=== PATIENT | female | born 1940 | race Caucasian/White ===

== ENCOUNTER → 2016-06-18 | Outpatient (CLI) | payer OTHER, MEDICARE ==
[~2016-06-18] MED LIST: ALBUTEROL2.5 MG/0.5; ATIVAN1 MG PO; BENICAR20 MG PO; BISA-LAX5 MG PO; CEFAZOLIN2 GM/20 ML IV; COLACE100 MG PO; COUMADIN 2.5MG2.5 M1 PO; COUMADIN 5 MG TA5 M1 PO; ESTRACE1 MG PO; FENOGLIDE120 MG PO; GENTLE LAXATIVE5 M1 PO; KETOROLAC IJ; LEVOTHYROXIN0.025 MG PO; MORPHINE 110 MG/1 ML IM; ONDANSETRON HCL4 M2 IV; PERCOCET PO; PHENERGAN25 MG/1 M1 IM; TOPROL XL100 MG PO; TRAMADOL 50 MG50 MG PO; TRICOR145 MG
== END ==
LOC: RAD 10:57
DX: Z12.31 Encounter for screening mammogram for malignant neoplasm of breast (principal)

== ENCOUNTER → 2017-06-21 | Outpatient (CLI) | payer OTHER, MEDICARE | LOC: RAD 01:15 | DX: Z12.31 Encounter for screening mammogram for malignant neoplasm of breast (principal) ==

== ENCOUNTER 2018-05-02 04:02 | Inpatient (IN) | payer OTHER, MEDICARE ==
[~2018-05-02] VITALS: Ht 165.1 cm; Wt 99.8 kg
--- NOTE | ~2018-05-02 | EKG ---
[address] [place] [address] ELECTROCARDIOGRAM REPORT Name: IRAJ OLIVIA Room #: 461-P ADM IN M.R.#: [id number] Admission: 05/02/18 Attend Phys: Martir Olsen MD Discharge: Date of : 36 Report #: [id number] THIS REPORT FOR: //name// [facility] ED Test Date: 2018-05-02 Test Time: 04:08:44 Pat Name: IRAJ OLIVIA Department: Room: 46 Gender: F Structural Engineering Project Manager: Carlos : 1940 Requested By: Ping Flowers Order Number: [id number] MD: Luke Garcia Measurements Intervals Mcgrath Rate: 62 P: 45 ID: [id number] QRS: 63 QRSD: 104 T: 23 QT: 408 QTc: 415 Interpretive Statements Sinus rhythm Atrial premature complexes in couplets Low voltage, precordial leads Compared to ECG 12/16/2013 14:20:35 Atrial premature complex(es) now present Sinus tachycardia no longer present Poor R-wave progression no longer present Electronically Signed On 05-02-2018 8:07:42 [employer] MACHINE OPERATOR by Luke Garcia [email or web address] <ELECTRONICALLY SIGNED> By: Luke Garcia MD 05/02/18806 7 7 Luke Garcia MD /EPI
--- NOTE | ~2018-05-02 | PATH ---
[facility] [address] [place] [address] PATHOLOGY RPT PROCEDURE Name: IRAJ OLIVIA Room #: 224-P DIS IN M.R.#: [id number] Admission: 05/02/18 Date of : 36 Discharge: 05/05/18 Report #: [id number] Path Case #: [id number] [facility] Accession Number: [id number] . 01 Material submitted: . GALLBLADDER . 01 Clinical history: . Cholelithiasis Acute cholecystitis and gallstone, pancreatitis . 02 Diagnosis: Gallbladder, cholecystectomy: - Mild chronic cholecystitis. - Cholelithiasis. - Cholesterolosis. - Incidental reactive lymph node. (IUV:areli; 05/05/2018) QMS/05/05/2018 . 02 Electronically signed: . Priscila Samaniego MD, Pathologist NPI- [id number] . 01 Gross description: . The specimen is received in formalin, labeled "Iraj Olivia, gallbladder" and consists of a previously opened green and wrinkled gallbladder measuring 6.8 cm in length and 4.8 cm in diameter. Present in the container are multiple black gravel-like 2 smooth calculi ranging from 0.1-0.9 cm. The mucosa is green with yellow highlights and a wall thickness ranging from 0.1-0.3 cm. No masses or lesions are identified. Rn Observation sections are submitted in A1. (SDY; 05/04/2018) SYU/SYU . 02 Pathologist provided ICD-10: K80.10, K82.4 . 02 CPT . 730409 Specimen Comment: A courtesy copy of this report has been sent to Specimen Comment: [phone], , . Specimen Comment: Report sent to ,DR CORDOVA / DR KENYON Specimen Comment: A duplicate report has been generated due to demographic updates. Performed at: [address] [place] [address] PATHOLOGY RPT PROCEDURE Name: IRAJ OLIVIA Room #: 224-P [facility] IN M.R.#: [id number] Admission: 05/02/18 Date of : 36 Discharge: 05/05/18 Report #: [id number] Path Case #: [id number] [address] [facility] [address], [place], [place] [id number] MD Shahram Reyes MD Phone: [phone] Performed at: [address] [id number] MD Priscila Samaniego MD Phone: [phone]
[2018-05-02 04:02] VITALS: BP 136/88
[2018-05-02 04:17] LABS: ABSOLUTE NEUTROPHILS 6.1 thou/uL (1.4-8.2); BASOPHILS 0.8 % (0.0-2.0); EOSINOPHILS 0.6 % (0.0-3.0); HEMATOCRIT 42.5 % (37.0-47.0); HEMOGLOBIN 14.3 gm/dL (12.0-15.0); LYMPHOCYTES 16.3 % (24.0-44.0); MCHC 33.6 g/dL (28.0-37.0); MCV 89.3 fL (80.0-100.0); PLATELET COUNT 217 thou/uL (150-400); POLYS 77.3 % (36.0-66.0); RBC 4.76 mil/uL (4.20-5.00); RDW 12.9 % (10.5-14.5); WBC 7.9 thou/uL (4.0-11.0)
[2018-05-02] MEDS ORDERED: OLMESARTAN-HCT1 EAC1 PO (04:18)
[2018-05-02] MEDS ORDERED: TOPROL XL100 MG PO (04:19)
[2018-05-02] MEDS ORDERED: TRAMADOL 50 MG50 MG PO (04:20)
[2018-05-02] MEDS ORDERED: ATIVAN1 MG PO (04:21)
[2018-05-02] MEDS ORDERED: PRAVACHOL40 MG PO (04:21)
[2018-05-02 04:24] LABS: CREATININE 1.2 mg/dL (0.6-1.0); POTASSIUM 3.4 mmol/L (3.5-5.1)
[2018-05-02 04:30] LABS: ALBUMIN 3.3 g/dL (3.4-5.0); DIRECT BILIRUBIN 0.8 mg/dL (<0.1-0.3); TOTAL BILIRUBIN 1.6 mg/dL (<0.1-1.0)
[2018-05-02 06:32] VITALS: BP 144/61
[2018-05-02 06:35] LABS: URINE BLOOD NEGATIVE (Negative); URINE CLARITY SL CLOUDY; URINE COLOR YELLOW; URINE GLUCOSE-RANDOM* NEGATIVE (Negative); URINE KETONES TRACE (Negative); URINE LEUKOCYTES-REFLEX NEGATIVE (Negative); URINE PROTEIN (DIPSTICK) NEGATIVE (Negative); URINE SPECIFIC GRAVITY 1.025 (1.005-1.035)
[2018-05-02 06:38] LABS: ICTOTEST (BILI CONFIRMATORY) Negative (Negative); URINE BILIRUBIN NEGATIVE (Negative); URINE NITRITE-REFLEX POSITIVE (Negative)
[2018-05-02 06:40] VITALS: BP 144/61
[2018-05-02 06:51] LABS: CASTS None Seen /LPF (None Seen); SQUAMOUS 4-10 Moderate /LPF (0-3)
[2018-05-02 06:52] LABS: BACTERIA-REFLEX >30 Many /HPF (None Seen); CRYSTALS None Seen /LPF (None Seen); URINE RBC None Seen /HPF (0-2); URINE WBC-REFLEX 6-15 Few /HPF (0-5)
[2018-05-02 16:39] VITALS: BP 116/62; BP 146/61
[2018-05-02 19:49] VITALS: BP 146/70
[2018-05-03 00:06] LABS: GLYCOHEMOGLOBIN (HGB A1C) 5.8 % (4.8-5.6)
[2018-05-03 03:16] VITALS: BP 147/63
[2018-05-03 03:44] LABS: ALBUMIN 2.8 g/dL (3.4-5.0); CALCIUM 8.9 mg/dL (8.5-10.1); DIRECT BILIRUBIN 2.5 mg/dL (<0.1-0.3); POTASSIUM 3.4 mmol/L (3.5-5.1); TOTAL BILIRUBIN 3.8 mg/dL (<0.1-1.0); TOTAL PROTEIN 5.9 g/dL (6.4-8.2)
[2018-05-03 05:30] LABS: HEMATOCRIT 37.7 % (37.0-47.0); HEMOGLOBIN 12.5 gm/dL (12.0-15.0); MCH 30.2 pg (26.0-34.0); MCHC 33.1 g/dL (28.0-37.0); MCV 91.4 fL (80.0-100.0); RBC 4.13 mil/uL (4.20-5.00); RDW 13.1 % (10.5-14.5); WBC 4.6 thou/uL (4.0-11.0)
[2018-05-03 07:19] VITALS: BP 157/45
[2018-05-03 13:20] VITALS: BP 147/55
[2018-05-03 19:01] VITALS: BP 145/64
[2018-05-04 04:24] VITALS: BP 146/60
[2018-05-04 06:08] LABS: ALBUMIN 2.7 g/dL (3.4-5.0); DIRECT BILIRUBIN 0.5 mg/dL (<0.1-0.3); TOTAL BILIRUBIN 1.3 mg/dL (<0.1-1.0); TOTAL PROTEIN 5.9 g/dL (6.4-8.2)
[2018-05-04 11:30] VITALS: BP 130/54
[2018-05-04 12:00] VITALS: BP 146/61
[2018-05-04 12:30] VITALS: BP 135/55
[2018-05-04 14:07] VITALS: BP 141/67
[2018-05-04 19:00] VITALS: BP 160/74
[2018-05-05 08:22] VITALS: BP 150/67
[2018-05-05 09:26] LABS: HEMATOCRIT 37.4 % (37.0-47.0); HEMOGLOBIN 12.8 gm/dL (12.0-15.0); MCH 31.1 pg (26.0-34.0); MCHC 34.4 g/dL (28.0-37.0); MCV 90.5 fL (80.0-100.0); RBC 4.13 mil/uL (4.20-5.00); RDW 13.3 % (10.5-14.5); WBC 8.4 thou/uL (4.0-11.0)
[2018-05-05 09:45] LABS: ALBUMIN 2.8 g/dL (3.4-5.0); CALCIUM 9.2 mg/dL (8.5-10.1); MAGNESIUM 1.5 mg/dL (1.8-2.4); POTASSIUM 3.9 mmol/L (3.5-5.1); TOTAL BILIRUBIN 0.9 mg/dL (<0.1-1.0); TOTAL PROTEIN 6.3 g/dL (6.4-8.2)
[2018-05-05] MEDS ORDERED: HYDROCODON-ACE1 EAC7 PO (10:15)
[2018-05-05 10:29] VITALS: BP 150/67
== END 2018-05-05 13:46 | disposition home health service (06) | DRG 853 ==
LOC: ER 04:02 → 4W 06:15 → EROBS 06:15 → 4W 06:37 → SICU 05-04 19:21 → ENTRNSPT 05-05 13:17 → EDTRNSPTSTS 05-05 13:24 → SICU 05-05 13:46
PROVIDERS: Emergency Medicine; Internal Medicine; Nurse Practitioner; Nurse Practitioner Family
PROC: BF141ZZ Fluoroscopy of Gallbladder, Bile Ducts and Pancreatic Ducts using Low Osmolar Contrast (ICD-10-PCS; principal; 2018-05-04)
PROC: 0FT44ZZ Resection of Gallbladder, Percutaneous Endoscopic Approach (ICD-10-PCS; principal; 2018-05-04)
DX: A41.9 Sepsis, unspecified organism (principal); K85.10 Biliary acute pancreatitis without necrosis or infection; N17.9 Acute kidney failure, unspecified; N39.0 Urinary tract infection, site not specified; K80.00 Calculus of gallbladder with acute cholecystitis without obstruction; I10 Essential (primary) hypertension; E78.5 Hyperlipidemia, unspecified; E03.9 Hypothyroidism, unspecified; K83.8 Other specified diseases of biliary tract; Z96.652 Presence of left artificial knee joint; E83.42 Hypomagnesemia; B96.20 Unspecified Escherichia coli [E. coli] as the cause of diseases classified elsewhere; E87.6 Hypokalemia; R73.9 Hyperglycemia, unspecified; F41.9 Anxiety disorder, unspecified; Z86.711 Personal history of pulmonary embolism; Z90.49 Acquired absence of other specified parts of digestive tract; Z90.710 Acquired absence of both cervix and uterus; Z79.899 Other long term (current) drug therapy; Z88.2 Allergy status to sulfonamides
CPT/HCPCS: 10040; 15000; 50010; 50101; 50249; 50411; 50555; 50558; 50962; 51975; 52265; 53307; 53310; 54022; 54118; 55245; 56462; 56525; 56526; 62110; 62900; 70005

== ENCOUNTER → 2018-06-28 | Outpatient (CLI) | payer OTHER, MEDICARE ==
[~2018-06-28] MED LIST changes: +HYDROCODON-ACE1 EAC7 PO; +OLMESARTAN-HCT1 EAC1 PO; +PRAVACHOL40 MG PO
== END ==
LOC: RAD 06-22 15:42
DX: Z12.31 Encounter for screening mammogram for malignant neoplasm of breast (principal)

== ENCOUNTER → 2019-07-17 | Outpatient (CLI) | payer OTHER, MEDICARE | LOC: RAD 13:39 | DX: Z12.31 Encounter for screening mammogram for malignant neoplasm of breast (principal); N64.89 Other specified disorders of breast ==

== ENCOUNTER → 2020-11-07 | Outpatient (CLI) | payer OTHER, MEDICARE | LOC: BC 10:28 | PROVIDERS: ATTEND Internal Medicine | DX: Z12.31 Encounter for screening mammogram for malignant neoplasm of breast (principal) ==